=== PATIENT | female | born 1960 | race Caucasian/White ===

== ENCOUNTER 2022-05-19 19:32 | Emergency (ER) | payer OTHER, SELFPAY ==
[2022-05-19 19:54] VITALS: BP 152/78; PULSE 63; RESP 20; TEMP 36.3; O2SAT 98
--- NOTE | 2022-05-19 19:55 | ED.EAR ---
HPI - Ear Problem General Chief complaint: Ear Stated complaint: ear pain Time Seen by Provider: 05/19/22 19:56 History of Present Illness HPI Narrative: Evi Cochran is a 62 yo female with depression, high blood pressure, COPD, rheumatoid arthritis, high cholesterol, who states she felt feverish and has ear pain and has been not feeling well for a week. She started smoking again and is smoking about 3 cigarettes a day. Related Data Home Medications Medication Instructions Recorded Confirmed bupropion HCl 300 mg 24 hr tablet, 300 mg PO QAM 06/26/21 05/19/22 extended release (Wellbutrin XL) cholecalciferol (vitamin D3) 1,250 1,250 mcg PO WEEKLY 06/26/21 05/19/22 mcg (50,000 unit) tablet (Dialyvite Vitamin D3 Max) hydrochlorothiazide 25 mg tablet 25 mg PO DAILY 06/26/21 05/19/22 isosorbide dinitrate 20 mg tablet 20 mg PO TID 06/26/21 05/19/22 methotrexate sodium 2.5 mg tablet 2.5 mg PO WEEKLY 06/26/21 05/19/22 montelukast 10 mg tablet 10 mg PO DAILY 06/26/21 05/19/22 nitrofurantoin macrocrystal 100 mg 100 mg PO Q12H 06/26/21 05/19/22 capsule potassium chloride 20 mEq 20 meq PO DAILY 06/26/21 05/19/22 tablet,extended release pravastatin 20 mg tablet 20 mg PO DAILY 06/26/21 05/19/22 prednisone 1 mg tablet,delayed 1 mg PO DAILY 06/26/21 05/19/22 release sulindac 150 mg tablet 150 mg PO BID 06/26/21 05/19/22 trazodone 150 mg tablet 150 mg PO QHS 06/26/21 05/19/22 Allergies Allergy/AdvReac Type Severity Reaction Status Date / Time Penicillins Allergy Unknown Rash Verified 05/19/22 19:52 Review of Systems Review of Systems: CONSTITUTIONAL: Subjective fever, chills, sweats. Generally feeling poorly EYES: Denies visual changes, redness, discharge. ENT: Denies rhinorrhea, congestion, sore throat, right otalgia. CARDIOVASCULAR: Denies chest pain, palpitations, edema. RESPIRATORY: Denies dyspnea, wheezing, cough GASTROINTESTINAL: Denies abdominal pain, nausea, vomiting, diarrhea. GENITOURINARY: Denies dysuria, hematuria, abnormal discharge SKIN: Denies rash or itching. NEUROLOGIC: Denies numbness, or focal weakness. PSYCHIATRIC: Denies anxiety or depression. [facility] Past Medical History Medical History (Updated 05/19/22 @ 20:07 by Nilda Oliver CNP) Anxiety Arthritis COPD (chronic obstructive pulmonary disease) Heart attack HTN (hypertension) Family History Family History Father Alcoholism Asthma Depression Anxiety Mother Hypertension Anxiety Depression Heart disease Sibling Hypertension Depression Anxiety Grandparent Diabetes mellitus Hypertension Depression Anxiety Heart disease Social History Social History Smoking status: Former smoker Alcohol intake: current Alcohol use details: occasional Substance use: never Exam Narrative: GENERAL: This is a well-nourished, well-developed patient, in mild distress. HEAD: normocephalic, atraumatic. EYES: Sclera clear/white. Vision is grossly intact. EARS: External ears normal, auditory canals clear on left, on right is erythematous with fluid behind TM Hearing grossly intact. NOSE: External nose normal without nasal discharge, nares without redness, no rhinorrhea. THROAT: Mucous membranes moist, posterior pharynx mild erythema NECK: Neck supple, non-tender CARDIOVASCULAR: Regular rate and rhythm without murmurs, gallops, or rubs. RESPIRATORY: Clear to auscultation. Breath sounds equal bilaterally. No wheezes, rales, or rhonchi. GASTROINTESTINAL: Not done, SKIN: warm, intact with no suspicious lesions or rash, good texture and turgor. NEURO: awake, alert, and oriented to person, place and time. There were no obvious focal neurologic abnormalities. Steady gait EXTREMITIES: Normal range of motion. BACK: Nontender without deformity Course Course Emergency Course: Patient comes to [facility]
== END 2022-05-19 20:13 | disposition home or self-care (01) ==
PROVIDERS: Emergency Provider Nurse Practitioner
DX: H66.91 Otitis media, unspecified, right ear (principal); Z20.822 Contact with and (suspected) exposure to COVID-19; Z87.891 Personal history of nicotine dependence; M19.90 Unspecified osteoarthritis, unspecified site; J44.9 Chronic obstructive pulmonary disease, unspecified; I10 Essential (primary) hypertension; I25.2 Old myocardial infarction; F41.9 Anxiety disorder, unspecified
CPT/HCPCS: 87426; 99213; C9803; G0463

== ENCOUNTER 2022-08-23 14:22 | Emergency (ER) | payer OTHER, SELFPAY ==
--- NOTE | ~2022-08-23 | XR_ITS ---
EXAMINATION: XR finger 2nd LT min 2V INDICATION: Left second finger pain TECHNIQUE: Four views of the left second finger are obtained. COMPARISON: None available FINDINGS: There is proximal soft tissue swelling of the second finger. No acute fracture is identifie d. A tiny oblique lucency with sclerotic margins at the dorsal lateral aspect of th of the second dis nia phalanx has a appearance of prior injury. 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 IMPRESSION: 1. Soft tissue swelling of the second finger without acute osseous abnormality identified. Reviewed, dictated and finalized at location A.
[2022-08-23 14:54] VITALS: BP 120/72; PULSE 56; RESP 12; TEMP 36.8; O2SAT 98
[2022-08-23 14:57] VITALS: BP 120/72; PULSE 56; RESP 12; TEMP 36.8; O2SAT 98
--- NOTE | 2022-08-23 14:58 | ED.EXTPRO ---
HPI - Extremity Problem General Chief complaint: Extremity Injury, Upper Stated complaint: Left Hand Finger Pain Time Seen by Provider: 08/23/22 14:58 Source: patient, RN notes reviewed and old records reviewed Mode of arrival: ambulatory Limitations: no limitations History of Present Illness HPI Narrative: 62-year-old female presents to the [facility] with left second finger swelling that started Tuesday, states it felt feverish and decreased range of motion yesterday. Denies any injury. No redness to the area. Capillary refill is under 2 seconds. Sensation intact Denies any injury. No bruising. No wounds. Related Data Home Medications Medication Instructions Recorded Confirmed bupropion HCl 300 mg 24 hr tablet, 300 mg PO QAM 06/26/21 08/23/22 extended release (Wellbutrin XL) cholecalciferol (vitamin D3) 1,250 1,250 mcg PO WEEKLY 06/26/21 08/23/22 mcg (50,000 unit) tablet (Dialyvite Vitamin D3 Max) hydrochlorothiazide 25 mg tablet 25 mg PO DAILY 06/26/21 08/23/22 isosorbide dinitrate 20 mg tablet 20 mg PO TID 06/26/21 08/23/22 methotrexate sodium 2.5 mg tablet 2.5 mg PO WEEKLY 06/26/21 08/23/22 montelukast 10 mg tablet 10 mg PO DAILY 06/26/21 08/23/22 nitrofurantoin macrocrystal 100 mg 100 mg PO Q12H 06/26/21 08/23/22 capsule potassium chloride 20 mEq 20 meq PO DAILY 06/26/21 08/23/22 tablet,extended release pravastatin 20 mg tablet 20 mg PO DAILY 06/26/21 08/23/22 prednisone 1 mg tablet,delayed 1 mg PO DAILY 06/26/21 08/23/22 release sulindac 150 mg tablet 150 mg PO BID 06/26/21 08/23/22 trazodone 150 mg tablet 150 mg PO QHS 06/26/21 08/23/22 Allergies Allergy/AdvReac Type Severity Reaction Status Date / Time Penicillins Allergy Unknown Rash Verified 08/23/22 14:55 Review of Systems Review of Systems: All systems reviewed & are unremarkable except as noted in HPI and below Constitutional: Constitutional: Reports no additional constitutional complaints, Denies chills and Denies fever(s) Eyes: Eyes: Reports no additional eye complaints ENT: Reports system reviewed and no additional complaints, except as documented Cardiovascular: Cardiovascular: Reports no additional cardiovascular complaints Respiratory: Respiratory: Reports no additional respiratory complaints Gastrointestinal: Gastrointestinal: Reports no additional gastrointestinal complaints Musculoskeletal: Musculoskeletal: Reports as per HPI Integumentary/Breasts: Skin/Breast: Reports system reviewed and no additional complaints, except as docu Neurologic: Reports system reviewed and no additional complaints, except as documented Psychiatric: Psychiatric: Reports no additional psychiatric complaints Allergic/Immunologic: Allergic/Immunologic: Reports no additional allergic/immunologic complaints PMFSH Past Medical History Medical History Anxiety Arthritis COPD (chronic obstructive pulmonary disease) Heart attack HTN (hypertension) Family History Family History Father Alcoholism Asthma Depression Anxiety Mother Hypertension Anxiety Depression Heart disease Sibling Hypertension Depression Anxiety Grandparent Diabetes mellitus Hypertension Depression Anxiety Heart disease Social History Social History Smoking status: Former smoker Alcohol intake: current Alcohol use details: occasional Substance use: never Comments At the time of my signature, I reviewed and agree with the nursing past medical, surgical, social, and family history. There is no relevant family history pertinent to the patient complaint. Exam Const: General: healthy appearing, no acute distress, alert and well nourished Nutritional Appearance: well nourished Orientation/consciousness: patient oriented x3 Limitations: no limitations HENMT: Head: nor
== END 2022-08-23 15:46 | disposition home or self-care (01) ==
PROVIDERS: Emergency Provider Nurse Practitioner
DX: M79.89 Other specified soft tissue disorders (principal); Z87.891 Personal history of nicotine dependence; J44.9 Chronic obstructive pulmonary disease, unspecified; I10 Essential (primary) hypertension; I25.2 Old myocardial infarction; F41.9 Anxiety disorder, unspecified
CPT/HCPCS: 73140; 99213; G0463

== ENCOUNTER 2023-07-31 16:54 | Emergency (ER) | payer OTHER, SELFPAY ==
[2023-07-31 17:20] VITALS: BP 113/61; PULSE 58; RESP 12; TEMP 37.3; O2SAT 97
--- NOTE | 2023-07-31 17:40 | ED.UPPEXIN ---
HPI - Extremity Injury (Upper) General Chief Complaint: Extremity Injury, Upper Stated Complaint: swollen right finger Time Seen by Provider: 07/31/23 17:41 Source: patient Mode of arrival: ambulatory Limitations: no limitations History of Present Illness HPI narrative: 63-year-old female presented for complaint of pain, redness, and swelling to the right hand and wrist, specifically the middle finger. Denies injury. Denies deformity, numbness, tingling or weakness. Endorses a history of rheumatoid arthritis. She has been following with a router machine operator in [facility]. Taking hydrocodone for bilateral knee pain. Related Data Home Medications Medication Instructions Recorded Confirmed bupropion HCl 300 mg 24 hr tablet, 300 mg PO QAM 06/26/21 07/31/23 extended release (Wellbutrin XL) cholecalciferol (vitamin D3) 1,250 1,250 mcg PO WEEKLY 06/26/21 07/31/23 mcg (50,000 unit) tablet (Dialyvite Vitamin D3 Max) hydrochlorothiazide 25 mg tablet 25 mg PO DAILY 06/26/21 07/31/23 isosorbide dinitrate 20 mg tablet 20 mg PO TID 06/26/21 07/31/23 methotrexate sodium 2.5 mg tablet 2.5 mg PO WEEKLY 06/26/21 07/31/23 montelukast 10 mg tablet 10 mg PO DAILY 06/26/21 07/31/23 potassium chloride 20 mEq 20 meq PO DAILY 06/26/21 07/31/23 tablet,extended release pravastatin 20 mg tablet 20 mg PO DAILY 06/26/21 07/31/23 trazodone 150 mg tablet 150 mg PO QHS 06/26/21 07/31/23 chlorthalidone 25 mg tablet 25 mg PO DAILY 07/31/23 07/31/23 hydrocodone 5 mg-acetaminophen 325 See Rx Instructions .Route .COMPLEX 07/31/23 07/31/23 mg tablet metoprolol tartrate 50 mg tablet 50 mg PO DAILY 07/31/23 07/31/23 sertraline 50 mg tablet 50 mg PO DAILY 07/31/23 07/31/23 Allergies Allergy/AdvReac Type Severity Reaction Status Date / Time Penicillins Allergy Unknown Rash Verified 07/31/23 17:34 Review of Systems Review of Systems: CONSTITUTIONAL: Denies body aches, fever, chills EYES: Denies visual changes ENT: Denies rhinorrhea, congestion CARDIOVASCULAR: Denies chest pain, palpitations, or edema. RESPIRATORY: Denies cough or dyspnea. GASTROINTESTINAL: Denies abdominal pain, nausea, vomiting, or diarrhea. SKIN: Denies rash, itching, or wounds. MUSCULOSKELETAL: reports right hand joint pain, Denies back pain,or myalgia. NEUROLOGIC: Denies headache, numbness, tingling, or weakness. All systems reviewed & are unremarkable except as noted in HPI and below PMFSH Past Medical History Medical History Anxiety Arthritis COPD (chronic obstructive pulmonary disease) Heart attack HTN (hypertension) Surgical History Surgical History History of appendectomy History of colonoscopy Family History Family History Father Alcoholism Asthma Depression Anxiety Mother Hypertension Anxiety Depression Heart disease Sibling Hypertension Depression Anxiety Grandparent Diabetes mellitus Hypertension Depression Anxiety Heart disease Social History Social History Smoking status: Former smoker Alcohol intake: current Alcohol use details: occasional Substance use: never Comments At time of signature, I have reviewed and agree with nursing past medical, surgical, social and family history unless otherwise noted. Please see nursing chart for further information. There is no relevant family history pertinent to the presenting complaint Exam Narrative: GENERAL: Well-appearing, well-nourished, and in no acute distress. HEAD: Normocephalic, atraumatic. EYES: conjunctivae clear CHEST: Speaks in full sentences. No respiratory distress. HEART: Regular rate and rhythm. Normal and equal peripheral pulses. EXTREMITIES: Right 3rd digit moderate swelling, erythema and warmth extending from PIP to palmar aspect; ten
== END 2023-07-31 18:00 | disposition home or self-care (01) ==
PROVIDERS: Emergency Provider Nurse Practitioner Family
DX: M25.541 Pain in joints of right hand (principal); M25.531 Pain in right wrist; M19.90 Unspecified osteoarthritis, unspecified site; J44.9 Chronic obstructive pulmonary disease, unspecified; I25.2 Old myocardial infarction; I10 Essential (primary) hypertension; F41.9 Anxiety disorder, unspecified
CPT/HCPCS: 99213; G0463

== ENCOUNTER 2023-10-10 11:37 | Emergency (ER) | payer OTHER, SELFPAY ==
[2023-10-10 11:54] VITALS: BP 99/56; PULSE 47; RESP 14; TEMP 37; O2SAT 96
--- NOTE | 2023-10-10 11:57 | ED.FEMALEGU ---
HPI - Female Genitourinary General Chief complaint: Urogenital-Female Stated complaint: UTI Time Seen by Provider: 10/10/23 11:57 Source: patient Mode of arrival: ambulatory Limitations: no limitations History of Present Illness HPI Narrative: Evi is a 63-year-old female patient presenting to the clinic today with complaints of possible UTI. She reports she is having burning with urination that just started yesterday. States no fever or chills. No back pain or belly pain. States her urine was foul smelling and very concentrated. Related Data Home Medications Medication Instructions Recorded Confirmed bupropion HCl 300 mg 24 hr tablet, 300 mg PO QAM 06/26/21 07/31/23 extended release (Wellbutrin XL) cholecalciferol (vitamin D3) 1,250 1,250 mcg PO WEEKLY 06/26/21 07/31/23 mcg (50,000 unit) tablet (Dialyvite Vitamin D3 Max) hydrochlorothiazide 25 mg tablet 25 mg PO DAILY 06/26/21 07/31/23 isosorbide dinitrate 20 mg tablet 20 mg PO TID 06/26/21 07/31/23 methotrexate sodium 2.5 mg tablet 2.5 mg PO WEEKLY 06/26/21 07/31/23 montelukast 10 mg tablet 10 mg PO DAILY 06/26/21 07/31/23 potassium chloride 20 mEq 20 meq PO DAILY 06/26/21 07/31/23 tablet,extended release pravastatin 20 mg tablet 20 mg PO DAILY 06/26/21 07/31/23 trazodone 150 mg tablet 150 mg PO QHS 06/26/21 07/31/23 chlorthalidone 25 mg tablet 25 mg PO DAILY 07/31/23 07/31/23 hydrocodone 5 mg-acetaminophen 325 See Rx Instructions .Route .COMPLEX 07/31/23 07/31/23 mg tablet metoprolol tartrate 50 mg tablet 50 mg PO DAILY 07/31/23 07/31/23 sertraline 50 mg tablet 50 mg PO DAILY 07/31/23 07/31/23 Allergies Allergy/AdvReac Type Severity Reaction Status Date / Time Penicillins Allergy Unknown Rash Verified 10/10/23 11:43 Review of Systems Review of Systems: Pertinent positives per HPI. Patient denies any fever, chills, rash, headache, visual changes, dizziness, cough, runny nose, sore throat, shortness of breath, chest pain, palpitations, nausea, vomiting, diarrhea, constipation, abdominal pain. PMF Past Medical History Medical History Anxiety Arthritis COPD (chronic obstructive pulmonary disease) Heart attack HTN (hypertension) Surgical History Surgical History History of appendectomy History of colonoscopy Family History Family History Father Alcoholism Asthma Depression Anxiety Mother Hypertension Anxiety Depression Heart disease Sibling Hypertension Depression Anxiety Grandparent Diabetes mellitus Hypertension Depression Anxiety Heart disease Social History Social History Smoking status: Former smoker Alcohol intake: current Alcohol use details: occasional Substance use: never Comments At the time of my signature, I reviewed and agree with the nursing past medical, surgical, social, and family history. There is no relevant family history pertinent to the patient complaint. Exam Narrative: General: Well-developed, well nourished, in no apparent distress. Head: Normocephalic, atraumatic. Cardio: Regular rate and rhythm, s1 and s2 normal, no murmur appreciated. Resp: Clear to auscultation bilaterally, no rhonchi, rales, wheezing or rubs. Abdomen: Soft, pliable, bowel sounds present in all quadrants, non-tender to palpation, no organomegly, no CVAT tenderness. Course Course Emergency Course: Portions of this record may have been created with voice recognition software. Level of Care: Express Care Visit Vital Signs Vital signs: Vital Signs Temperature 37.0 C 10/10/23 11:54 Pulse Rate 47 L 10/10/23 11:54 Respiratory Rate 14 10/10/23 11:54 Blood Pressure 99/56 L 10/10/23 11:54 Pulse Oximetry 96 10/10/23 11:54 Oxygen Delivery Diamond
== END 2023-10-10 12:30 | disposition home or self-care (01) ==
PROVIDERS: Emergency Provider Nurse Practitioner Family
DX: R30.0 Dysuria (principal); Z87.891 Personal history of nicotine dependence; M19.90 Unspecified osteoarthritis, unspecified site; J44.9 Chronic obstructive pulmonary disease, unspecified; I10 Essential (primary) hypertension; I25.2 Old myocardial infarction; F41.9 Anxiety disorder, unspecified
CPT/HCPCS: 81003; 99213; G0463

== ENCOUNTER 2024-06-30 16:34 | Emergency (ER) | payer OTHER, SELFPAY ==
[2024-06-30 16:43] VITALS: BP 122/69; PULSE 54; RESP 16; TEMP 37.2; O2SAT 97
--- NOTE | 2024-06-30 16:46 | ED.EXTPRO ---
HPI - Extremity Problem General Chief complaint: Extremity Problem,Nontraumatic Stated complaint: Both Hands Swollen Time Seen by Provider: 06/30/24 16:47 Source: patient, RN notes reviewed and old records reviewed Mode of arrival: ambulatory Limitations: no limitations History of Present Illness HPI Narrative: Patient with RA, just quit taking methotrexate. Now complains of diffuse swelling to the bilateral hands, worse in the bilateral 5th digits. She reports difficulty grabbing items. She has been taking hydrocodone for pain with poor relief. Denies any injury or trauma. Voices no other concerns or complaints at this time. Related Data Home Medications Medication Instructions Recorded Confirmed bupropion HCl 300 mg 24 hr tablet, 300 mg PO QAM 06/26/21 07/31/23 extended release (Wellbutrin XL) cholecalciferol (vitamin D3) 1,250 1,250 mcg PO WEEKLY 06/26/21 07/31/23 mcg (50,000 unit) tablet (Dialyvite Vitamin D3 Max) hydrochlorothiazide 25 mg tablet 25 mg PO DAILY 06/26/21 07/31/23 montelukast 10 mg tablet 10 mg PO DAILY 06/26/21 07/31/23 potassium chloride 20 mEq 20 meq PO DAILY 06/26/21 07/31/23 tablet,extended release pravastatin 20 mg tablet 20 mg PO DAILY 06/26/21 07/31/23 trazodone 150 mg tablet 150 mg PO QHS 06/26/21 07/31/23 chlorthalidone 25 mg tablet 25 mg PO DAILY 07/31/23 07/31/23 hydrocodone 5 mg-acetaminophen 325 See Rx Instructions .Route .COMPLEX 07/31/23 07/31/23 mg tablet metoprolol tartrate 50 mg tablet 50 mg PO DAILY 07/31/23 07/31/23 sertraline 50 mg tablet 50 mg PO DAILY 07/31/23 07/31/23 folic acid 1 mg tablet 1 mg PO DAILY 06/30/24 06/30/24 furosemide 20 mg tablet 20 mg PO DAILY 06/30/24 06/30/24 isosorbide mononitrate 60 mg 60 mg PO DAILY 06/30/24 06/30/24 tablet,extended release 24 hr Allergies Allergy/AdvReac Type Severity Reaction Status Date / Time Penicillins Allergy Unknown Rash Verified 06/30/24 16:39 Review of Systems Review of Systems: All systems reviewed & are unremarkable except as noted in HPI and below Constitutional: Constitutional: Reports no additional constitutional complaints ENT: Reports system reviewed and no additional complaints, except as documented Cardiovascular: Cardiovascular: Reports no additional cardiovascular complaints Respiratory: Respiratory: Reports no additional respiratory complaints Gastrointestinal: Gastrointestinal: Reports no additional gastrointestinal complaints Musculoskeletal: Musculoskeletal: Reports no additional musculoskeletal complaints and Reports as per HPI [facility] Past Medical History Medical History Anxiety Arthritis COPD (chronic obstructive pulmonary disease) Heart attack HTN (hypertension) Surgical History Surgical History History of appendectomy History of colonoscopy Family History Family History Father Alcoholism Asthma Depression Anxiety Mother Hypertension Anxiety Depression Heart disease Sibling Hypertension Depression Anxiety Grandparent Diabetes mellitus Hypertension Depression Anxiety Heart disease Social History Social History Smoking status: Former smoker Alcohol intake: current Alcohol use details: occasional Substance use: never Exam Const: General: cooperative, no acute distress, alert and awake Orientation/consciousness: oriented to person, oriented to place and oriented to time HENMT: Head: normal to inspection Resp: Effort & Inspection: normal respiratory effort and able to speak in complete sentences Auscultation: clear to auscultation bilaterally, no crackles, no rales, no rhonchi and no wheezes Cardio: Palpation: normal PMI Rate: regular rate Rhythm: regular rhythm Heart sounds: S1 normal heart sound present and S2
== END 2024-06-30 17:00 | disposition home or self-care (01) ==
PROVIDERS: Emergency Provider Nurse Practitioner Family
DX: M06.9 Rheumatoid arthritis, unspecified (principal); Z87.891 Personal history of nicotine dependence; M19.90 Unspecified osteoarthritis, unspecified site; J44.9 Chronic obstructive pulmonary disease, unspecified; I10 Essential (primary) hypertension; I25.2 Old myocardial infarction; F41.9 Anxiety disorder, unspecified
CPT/HCPCS: 99213; G0463